=== PATIENT | female | born 1995 | race American Indian/Alaskan Native ===

== ENCOUNTER 2022-03-10 06:28 | Emergency (ER) | payer MEDICAID ==
[2022-03-10 08:42] LABS: Hematocrit 42.3 % (30.3-42.9); Hemoglobin 13.8 gm/dl (10.1-14.3); Mean Corpuscular HGB Conc 33 % (30-34); Mean Corpuscular Volume 93 fl (79-97); Platelet Count 213 K/mm3 (140-440); Red Blood Count 4.57 M/mm3 (3.65-5.03); Red Cell Distribution Width 13.2 % (13.2-15.2)
[2022-03-10 08:57] VITALS: BP 144/79
[2022-03-10 09:01] LABS: Alanine Aminotransferase 21 units/L (7-56); Albumin 5.1 g/dL (3.9-5); BUN/Creatinine Ratio 22; Blood Urea Nitrogen 20 mg/dL (7-17); Calcium 10.4 mg/dL (8.4-10.2); Hemolysis Index 5
[2022-03-10 10:07] LABS: Basophils % (Manual) 0 % (0.0-1.8); Eosinophils % (Manual) 0 % (0.0-4.3); Total Cells Counted 100
[2022-03-10 10:09] LABS: Hypersegmented Neutrophils Rare; Large Platelets Rare; Ovalocytes Rare; Platelet Estimate Consistent w Auto; Poikilocytosis Few; Target Cells Rare
== END 2022-03-10 19:49 | disposition left against medical advice (07) ==
LOC: EDBD → ED 06:28
DX: R10.9 Unspecified abdominal pain (principal); R11.2 Nausea with vomiting, unspecified; Z53.21 Procedure and treatment not carried out due to patient leaving prior to being seen by health care provider
CPT/HCPCS: 36415; 80053; 83690; 85007; 85025

== ENCOUNTER 2022-03-10 18:22 | Emergency (ER) | payer MEDICAID ==
[2022-03-10] MEDS ORDERED: ONDANSETRON 4 MG/2 ML INJ IV ONE (20:28)
[2022-03-10] MEDS ORDERED: SODIUM CHLORIDE 0.9% 1000 ML 1,000 ML IV ONE (20:28)
[2022-03-10 20:31] LABS: Basophils % (Auto) 0.1 % (0.0-1.8); Hematocrit 39.9 % (30.3-42.9); Hemoglobin 13.2 gm/dl (10.1-14.3); Lymphocytes # (Auto) 0.9 K/mm3 (1.2-5.4); Lymphocytes % (Auto) 10.1 % (13.4-35.0); Mean Corpuscular HGB Conc 33 % (30-34); Mean Corpuscular Volume 92 fl (79-97); Monocytes # (Auto) 0.8 K/mm3 (0.0-0.8); Monocytes % (Auto) 9.1 % (0.0-7.3); Platelet Count 187 K/mm3 (140-440); Red Blood Count 4.35 M/mm3 (3.65-5.03)
--- NOTE | 2022-03-10 20:42 | Emergency Department Report ---
ED Abdominal Pain HPI - General Chief Complaint: Abdominal Pain Stated Complaint: NAUSEA VOMITING Time Seen by Provider: 03/10/22 20:26 Source: patient Mode of arrival: Stretcher Limitations: No Limitations - History of Present Illness Initial Comments: Is a 27-year-old -[place] female who presents for bilateral lower abdominal pain with nausea vomiting x1 week. States she presented this morning however she could not wait is returning tonight for completion of care. Symptoms are exacerbated by p.o. intake. Symptoms are relieved by nothing tried. Patient states nocturnal fever however no fever noted in triage today. Patient appears well-hydrated well-nourished and nontoxic. MD Complaint: abdominal pain - Related Data Previous Rx's Medication Instructions Recorded Last Taken Type Metoclopramide [Reglan] 10 mg PO Q6H PRN #30 tablet 03/10/22 Unknown Rx diphenhydrAMINE [Benadryl CAP] 25 mg PO Q6HR PRN #30 capsule 03/10/22 Unknown Rx Allergies Allergy/AdvReac Type Severity Reaction Status Date / Time No Known Allergies Allergy Verified 03/10/22 07:55 ED Review of Systems ROS: Stated complaint: NAUSEA VOMITING Other details as noted in HPI Constitutional: chills, fever Eyes: denies: eye pain, eye discharge, vision change ENT: throat pain, congestion. denies: ear pain Respiratory: denies: cough, shortness of breath, wheezing Cardiovascular: denies: chest pain, palpitations Endocrine: no symptoms reported Gastrointestinal: abdominal pain, nausea, vomiting. denies: diarrhea, constipation, melena Genitourinary: denies: urgency, dysuria, frequency, hematuria, discharge Musculoskeletal: denies: back pain, joint swelling, arthralgia Skin: denies: rash, lesions Neurological: denies: headache, weakness, paresthesias, vertigo Psychiatric: denies: anxiety, depression Hematological/Lymphatic: denies: easy bleeding, easy bruising ED Past Medical Hx - Past Medical History Previous Medical History?: No - Surgical History Past Surgical History?: No - Social History Smoking Status: Never Smoker Substance Use Type: None - Medications Home Medications: Home Medications Medication Instructions Recorded Confirmed Last Taken Type Metoclopramide [Reglan] 10 mg PO Q6H PRN #30 tablet 03/10/22 Unknown Rx diphenhydrAMINE [Benadryl CAP] 25 mg PO Q6HR PRN #30 capsule 03/10/22 Unknown Rx ED Physical Exam - General Limitations: No Limitations General appearance: alert, in no apparent distress - Head Head exam: Present: normocephalic, normal inspection - Eye Eye exam: Present: normal appearance, EOMI Pupils: Present: normal accommodation - ENT ENT exam: Present: normal orophraynx, mucous membranes moist, TM's normal bilaterally, normal external ear exam - Neck Neck exam: Present: normal inspection, full ROM. Absent: tenderness, lymphadenopathy - Respiratory Respiratory exam: Present: normal lung sounds bilaterally. Absent: respiratory distress, wheezes, stridor, chest wall tenderness - Cardiovascular Cardiovascular Exam: Present: regular rate, normal rhythm, normal heart sounds. Absent: systolic murmur, diastolic murmur, rubs, gallop - GI/Abdominal GI/Abdominal exam: Present: soft, normal bowel sounds. Absent: distended, tenderness, guarding, rebound, rigid, bruit, hernia - Rectal Rectal exam: Present: deferred - Extremities Exam Extremities exam: Present: normal inspection, full ROM, normal capillary refill - Back Exam Back exam: Present: normal inspection, full ROM. Absent: CVA tenderness (R), CVA tenderness (L) - Neurological Exam Neurological exam: Present: alert, oriented X3, CN II-XII intact, normal gait - Expanded Neurological Exam Expanded Patient oriented to: Present: person, place, time Speech: Present: fluid speech Best Eye Response ([place]): (4) open spontaneously Best Motor Response ([place]): (6) obeys commands Best Verbal Response ([place]): (5) oriented Grey Total: 15 - Psychiatric Psychiatric exam: Present: normal affect, normal mood - Skin Skin exam: Present: warm, dry, intact, normal color. Absent: rash ED Course Vital Signs 03/10/22 03/10/22 19:43 19:47 Temperature 98.2 F Pulse Rate 75 Respiratory 17 17 Rate Blood Pressure 144/80 O2 Sat by Pulse 98 98 Oximetry ED Medical Decision Making - Lab Data Result diagrams: 03/10/22 20:14 03/10/22 20:14 Labs 03/10/22 03/10/22 03/10/22 20:14 20:14 20:14 WBC 8.6 RBC 4.35 Hgb 13.2 Hct 39.9 MCV 92 MCH 30 MCHC 33 RDW 13.0 L Plt Count 187 Lymph % (Auto) 10.1 L Allen % (Auto) 9.1 H Eos % (Auto) 0.0 Baso % (Auto) 0.1 Lymph # (Auto) 0.9 L Allen # (Auto) 0.8 Eos # (Auto) 0.0 Baso # (Auto) 0.0 Seg Neutrophils % 80.7 H Seg Neutrophils # 7.0 Sodium 144 Potassium 3.3 L Chloride 104.1 Carbon Dioxide 24 Anion Gap 19 BUN 25 H Creatinine 0.8 Estimated GFR > 60 BUN/Creatinine Ratio 31 Glucose 132 H Calcium 9.9 Total Bilirubin 0.60 AST 21 ALT 18 Alkaline Phosphatase 64 Total Protein 7.8 Albumin 4.8 Albumin/Globulin Ratio 1.6 Lipase 13 HCG, Qual Negative - Medical Decision Making Nausea vomiting is resolved. Patient is tolerating p.o. intake without nausea vomiting. There is no fevers no chills. Patient declines UA at this time hCG is negative patient has had 1 L of normal saline. Benadryl and Reglan and Zofran which has resolved symptoms patient will be DC'd to home with prescriptions for same. Patient will rehydrate as directed. Patient will follow primary care doctor in 2 to 3 days. Patient verbalized agreement understanding of discharge plan patient DC'd home in stable condition at this time. Critical care attestation.: If time is entered above; I have spent that time in minutes in the direct care of this critically ill patient, excluding procedure time. ED Disposition Clinical Impression: Nausea and vomiting Qualifiers: Vomiting type: unspecified Qualified Code(s): R11.2 - Nausea with vomiting, unspecified Disposition: 01 HOME / SELF CARE / HOMELESS Is pt being admited?: No Does the pt Need Aspirin: No Condition: Stable Instructions: Abdominal Pain (ED), Nausea and Vomiting, Adult, Rehydration, Adult, Clear Liquid Diet, Adult, [id number] Additional Instructions: Take medications as prescribed. Continue to hydrate as directed. Follow-up with your doctor in 2 to 3 days. Return to emergency department should symptoms worsen. Prescriptions: diphenhydrAMINE [Benadryl CAP] 25 mg PO Q6HR PRN #30 capsule PRN Reason: nausea and vomiting Metoclopramide [Reglan] 10 mg PO Q6H PRN #30 tablet PRN Reason: Nausea And Vomiting Referrals: JOVANNY DELACRUZ MD [Primary Care Provider] - 2-3 Days Forms: Work/School Release Form(ED) Time of Disposition: 22:29
[2022-03-10 20:51] LABS: Alanine Aminotransferase 18 units/L (7-56); Albumin 4.8 g/dL (3.9-5); BUN/Creatinine Ratio 31; Blood Urea Nitrogen 25 mg/dL (7-17); Calcium 9.9 mg/dL (8.4-10.2); Hemolysis Index 10
[2022-03-10] MEDS ORDERED: METOCLOPRAMIDE 10 MG/2 ML INJ IV ONE (21:37)
[2022-03-10] MEDS ORDERED: diphenhydrAMINE 50 MG/ML VIAL IV ONE (21:37)
[2022-03-11 01:03] VITALS: BP 134/76
== END 2022-03-11 01:03 | disposition home or self-care (01) ==
LOC: ED 18:22
DX: R11.2 Nausea with vomiting, unspecified (principal)
CPT/HCPCS: 36415; 80053; 83690; 84703; 85025; 96361; 96374; 96375; 99284; J1200; J2405; J2765; J7030